=== PATIENT | female | born 1970 | race Caucasian/White ===

== ENCOUNTER 2023-05-15 22:27 | Emergency (ER) | payer OTHER ==
[2023-05-15 22:36] VITALS: RESP 18; BMI 30.3
[2023-05-15 23:12] VITALS: BP 99/60; PULSE 78; TEMP 98.6
[2023-05-16 00:24] LABS: BASO % 0.9 % (0-2.0); EOS % 2.4 % (0-4.5); HEMATOCRIT 43.1 % (32.4-45.2); LYMPH % 34.5 % (8-40); MCH 30.3 pg (25.7-33.7); MCHC 34.8 g/dl (32.0-36.0); MEAN CELL VOLUME 87.1 fl (80-96); MEAN PLT VOLUME 10.5 fl (7.5-11.1); MONO % 12.4 % (3.8-10.2); NEUT % 49.8 % (42.8-82.8); PLATELET COUNT 171 10^3/uL (134-434); RBC 4.95 M/mm3 (3.60-5.2); RDW 12.9 % (11.6-15.6); WHITE BLOOD COUNT 7.3 K/mm3 (4.0-10.0)
[2023-05-16 00:44] LABS: CHLORIDE 103 mmol/L (98-107); POTASSIUM 4.4 mmol/L (3.5-5.1); SODIUM 136 mmol/L (136-145)
[2023-05-16 00:46] LABS: CALCIUM 9.1 mg/dL (8.5-10.1)
[2023-05-16 00:47] LABS: ALBUMIN 3.6 g/dl (3.4-5.0); ANION GAP 9 mmol/L (4-13); CO2 24 mmol/L (21-32)
[2023-05-16 00:50] LABS: CREATININE 0.9 mg/dL (0.55-1.3); SGOT/AST 35 U/L (15-37); SGPT/ALT 101 U/L (13-61)
[2023-05-16 00:52] LABS: BILIRUBIN,TOTAL 0.4 mg/dL (0.2-1); TOT PROT 6.8 g/dl (6.4-8.2)
[2023-05-16 00:53] LABS: ALK PHOS 121 U/L (45-117)
[2023-05-16 01:06] LABS: GLUCOSE,RANDOM 479 mg/dL (74-106)
== END 2023-05-16 01:06 | disposition left against medical advice (07) ==
LOC: FER 22:27
DX: R07.89 Other chest pain (principal); M25.511 Pain in right shoulder; M25.512 Pain in left shoulder
CPT/HCPCS: 36415; 71046-TC-FY; 80053; 84484; 85025; 93005; 99285-25